=== PATIENT | female | born 1965 | race Caucasian/White ===

== ENCOUNTER 2019-11-12 23:21 | Emergency (ER) | payer BC, OTHER ==
[~2019-11-12] VITALS: Ht 157.5 cm; Wt 48.9 kg
--- NOTE | 2019-11-12 23:59 | NUR ---
THIS 54 YOF AMBULATED TO ED W/ MULTIPLE COMPLAINTS INCLUDING SORE THROAT, CABALLERO, N/V/D SINCE 11/07/19. PT REPORTS WENT TO PCP "BUT THEY DIDN'T DO ANYTHING." PT CURRENTLY DENIES C/O CP OR ABD PAIN. PLACED ON MONITOR, CALL LIGHT IN HAND.
[2019-11-13] MEDS ORDERED: SODIUM CHLORIDE FLUSH 10ML SYR IVF ONE
[2019-11-13] MEDS ORDERED: SODIUM CHLORIDE 0.9% 1,000ML IVBOLUS ONE
[2019-11-13] MEDS ORDERED: KETOROLAC 30 MG/1 ML IVPush ONE
[2019-11-13] MEDS ORDERED: ONDANSETRON 2MG/ML, 2ML IVPush ONE
[2019-11-13] MEDS ORDERED: KETOROLAC 30 MG/1 ML ONE (00:21)
[2019-11-13] MEDS ORDERED: ONDANSETRON 2MG/ML, 2ML ONE (00:22)
[2019-11-13 00:30] LABS: BASOPHILS # (AUTO) 0.02 x10^3/uL (0-0.1); BASOPHILS % (AUTO) 0 % (0-1); EOSINOPHILS # (AUTO) 0.02 x10^3/uL (0-0.4); EOSINOPHILS % (AUTO) 0 % (1-7); LYMPHOCYTES # (AUTO) 1.99 x10^3/uL (1-3.4); LYMPHOCYTES % (AUTO) 36 % (22-44); MD NO; MEAN CORPUSCULAR HEMOGLOBIN 32.1 pg (27.0-34.8); MEAN CORPUSCULAR HGB CONC 32.8 g/dL (32.4-35.8); MEAN PLATELET VOLUME 7.7 fL (7.4-10.4); MONOCYTES # (AUTO) 0.34 x10^3/uL (0.2-0.8); MONOCYTES % (AUTO) 6 % (2-9); NEUTROPHILS # (AUTO) 3.22 x10^3/uL (1.8-6.8); NEUTROPHILS % (AUTO) 58 % (42-75); PLATELET COUNT 237 x10^3/uL (130-400); RED BLOOD COUNT 4.25 x10^6/uL (3.82-5.3); RED CELL DISTRIBUTION WIDTH 12.3 % (9.6-15.2)
--- NOTE | 2019-11-13 00:36 | NUR ---
0010: PT AMBULATED TO BR, INSTRUCTED ON CLEAN CATCH TECHNIQUE. URINE COLLECTED AND SENT TO LAB. PT TAKEN TO RADIOLOGY. 0016: PIV PLACED IN RAC, BLOOD DRAWN AND SENT TO LAB. PT MEDICATED ORDERED. IVF INFUSING ORDERED. REVIEWED POC W/ PT AND DAUGHTER INCLUDING PENDING TEST RESULTS AND CHART REVIEW BY ERP. DENIED QUESTIONS/CONCERNS. PT PROVIDED W/ WARM BLANKET.
[2019-11-13 00:37] LABS: MICROSCOPIC AUTO
[2019-11-13 00:38] LABS: CULTURE INDICATED? NO
[2019-11-13 00:42] LABS: ALBUMIN 3.3 g/dL (3.4-5.0); ANION GAP 4 mmol/L (5-15); CALCIUM 8.5 mg/dL (8.5-10.1); CHLORIDE 104 mmol/L (98-107)
[2019-11-13 00:46] LABS: ALANINE AMINOTRANSFERASE 21 U/L (12-78); ALKALINE PHOSPHATASE 76 U/L (45-117); BILIRUBIN,TOTAL 0.4 mg/dL (0.2-1.0); CREATININE 0.66 mg/dL (0.55-1.02); TOTAL PROTEIN 6.6 g/dL (6.4-8.2)
[2019-11-13 01:40] VITALS: BP 124/66
--- NOTE | 2019-11-13 01:41 | NUR ---
PT REPORTS FEELING BETTER S/P MEDICATIONS AND IVF. REVIEWED DISCHARGE INSTRUCTIONS AND PRESCRIPTION X 1 W/ PT, VERBALIZED UNDERSTANDING TO INFORMATION PROVIDED INCLUDING FOLLOW UP CARE AND RETURN PRECAUTIONS. ADDRESSED QUESTIONS R/T INFLUENZA VACCINE AND PRECAUTIONS W/ FAMILY MEMBERS AT HOME. DENIED FURTHER QUESTIONS/CONCERNS. PT AMBULATED FROM ED W/ DAUGHTER, DENIED C/O PAIN AT TIME OF DISCHARGE.
== END 2019-11-13 01:44 | disposition home or self-care (01) ==
LOC: ED 23:59
DX: B34.9 Viral infection, unspecified (principal); M79.10 Myalgia, unspecified site
CPT/HCPCS: 36415; 71046; 80053; 81001; 83690; 85025; 96361; 96374; 96375; 99284; J1885; J2405; J7030